=== PATIENT | female | born 1955 | race Caucasian/White ===

== ENCOUNTER 2018-06-07 12:37 | Outpatient (CLI) | payer OTHER ==
--- NOTE | 2018-06-07 14:14 | MMO ---
BILATERAL SCREENING MAMMOGRAM: Date: 06/07/18 HISTORY: Screening. COMPARISON: Mammograms from 2017, 2016, and 2015. TECHNIQUE: Bilateral screening CC and MLO, as well as implant displaced mammograms. This patient's mammogram was interpreted with the assistance of computer-aided detection. FINDINGS: There are scattered fibroglandular densities. There is increased focal asymmetry behind the left nipp le. There is also an asymmetry outer left breast seen on CC only, not well defined on the MLO mammogr am. Right breast is unremarkable. IMPRESSION: BIRADS 0: Incomplete: Need Additional Imaging Evaluation and/or Prior Mammograms for Comparison Increasing focal asymmetry retroareolar left breast behind the nipple requires further evaluation. Sp ot compression and ultrasound, if deemed necessary, is recommended. Asymmetry left breast outer one-half posterior depth seen only on the CC mammogram. Recommend spot co mpression and ultrasound, if deemed necessary. The facility will notify patient of need for additional imaging services. POS: AUDI
== END 2018-06-07 12:38 | disposition home or self-care (01) ==
LOC: SCSMAMMO 12:37
PROVIDERS: ATTEND Internal Medicine
DX: Z12.31 Encounter for screening mammogram for malignant neoplasm of breast (principal)
CPT/HCPCS: 77067

== ENCOUNTER 2018-06-15 12:58 | Outpatient (CLI) | payer OTHER | END 2018-06-15 12:59 | disposition home or self-care (01) | LOC: BICMAMMO 12:58 | PROVIDERS: ATTEND Internal Medicine | DX: R92.2 Inconclusive mammogram (principal) | CPT/HCPCS: G0279 ==

== ENCOUNTER 2019-06-13 10:22 | Outpatient (CLI) | payer OTHER ==
--- NOTE | 2019-06-13 11:48 | MMO ---
Bilateral MAMMO Bilat Screen [facility]. CLINICAL HISTORY: Patient is 64 years old and is seen for screening. The patient has no family history of breast cancer. The patient has no personal history of cancer. The patient has a history of Implants in 1989. VIEWS: The views performed were: bilateral craniocaudal with tomosynthesis; bilateral mediolateral oblique with tomosynthesis; and bilateral Implant displaced with tomosynthesis. FILMS COMPARED: The present examination has been compared to prior imaging studies performed at [facility] on 05/11/2017 and 06/07/2018, and at [facility] on 06/15/2018. MAMMOGRAM FINDINGS: There are scattered fibroglandular densities. There is a focal asymmetry seen in the inner region of the right breast. In the left breast, there are no suspicious masses, calcifications or areas of architectural distortion. IMPRESSION: FOCAL ASYMMETRY IN THE RIGHT BREAST REQUIRES ADDITIONAL EVALUATION. ADDITIONAL PROJECTIONS (RIGHT CRANIOCAUDAL MAGNIFICATION; RIGHT CRANIOCAUDAL SPOT COMPRESSION WITH TOMOSYNTHESIS; AND RIGHT MEDIOLATERAL OBLIQUE SPOT COMPRESSION WITH TOMOSYNTHESIS) ARE RECOMMENDED. THE RESULTS OF THIS EXAM WERE SENT TO THE PATIENT. ACR BI-RADS Category 0 - Incomplete: Need additional imaging evaluation. [facility] will notify the patient of the need for additional imaging services. MAMMOGRAPHY NOTE: 1. A negative mammogram report should not delay a biopsy if a dominant of clinically suspicious mass is present. 2. Approximately 10% to 15% of breast cancers are not detected by mammography. 3. Adenosis and dense breasts may obscure an underlying neoplasm. Reported by: GRETTA JOSEPH MD Electonically Signed: [id number]
== END 2019-06-13 10:23 | disposition home or self-care (01) ==
LOC: BICMAMMO 10:22
PROVIDERS: ATTEND Internal Medicine
DX: Z12.31 Encounter for screening mammogram for malignant neoplasm of breast (principal); Z98.82 Breast implant status; N64.89 Other specified disorders of breast
CPT/HCPCS: 77063; 77067

== ENCOUNTER 2019-06-20 09:53 | Outpatient (CLI) | payer OTHER ==
--- NOTE | 2019-06-20 10:46 | MMO ---
Right Breast MAMMO Unilat Diag DDI RT+DEANGELO. CLINICAL HISTORY: Patient is 64 years old and is seen for additional evaluation requested from prior study. The patient has no family history of breast cancer. The patient has no personal history of cancer. The patient has a history of Implants in 1989. VIEWS: The views performed were: right craniocaudal spot compression with tomosynthesis; right mediolateral oblique spot compression with tomosynthesis; right mediolateral; right mediolateral with tomosynthesis; and right Implant displaced with tomosynthesis. FILMS COMPARED: The present examination has been compared to prior imaging studies performed at [facility] on 06/07/2018, and at [facility] on 06/15/2018, 06/13/2019 and 06/20/2019. MAMMOGRAM FINDINGS: There are scattered fibroglandular densities. Additional evaluation was performed for the focal asymmetry in the right breast, inner region seen on 06/13/2019. On the present examination, there is an irregular mass measuring 4 millimeters in the right breast at 3 o'clock. IMPRESSION: MASS IN THE RIGHT BREAST IS SUSPICIOUS. AN ULTRASOUND-GUIDED BREAST BIOPSY IS RECOMMENDED. THE FINDINGS AND RECOMMENDATIONS WERE DISCUSSED WITH THE PATIENT PRIOR TO HER LEAVING THE CENTER. THE RESULTS OF THIS EXAM WERE SENT TO THE PATIENT. ACR BI-RADS Category 4 - Suspicious abnormality - biopsy should be considered MAMMOGRAPHY NOTE: 1. A negative mammogram report should not delay a biopsy if a dominant of clinically suspicious mass is present. 2. Approximately 10% to 15% of breast cancers are not detected by mammography. 3. Adenosis and dense breasts may obscure an underlying neoplasm. Reported by: EDGAR GUEVARA MD Electonically Signed: [id number]
--- NOTE | 2019-06-20 10:52 | ULT ---
RIGHT BREAST DIAGNOSTIC ULTRASOUND: Date: 06/20/19 INDICATION: Follow-up mass in the right breast seen on the diagnostic mammogram performed on 06/20/19. FINDINGS: Corresponding to the small irregular mass seen within the inner region of the right breast is a hypoe choic, irregular, partially shadowing mass within the right breast 2 o'clock position, 3.0 cm from th e nipple. The lesion measures approximately 3.0 x 2.0 x 3.0 mm in size. IMPRESSION: BIRADS Category 4 - Suspicious abnormality. Recommend ultrasound guided core biopsy of the suspicious mass in the right breast 2 o'clock position 3.0 cm from the nipple. The patient was counseled on the findings prior to leaving the breast center . POS: OFF
== END 2019-06-20 09:54 | disposition home or self-care (01) ==
LOC: BICMAMMO 09:53
PROVIDERS: ATTEND Internal Medicine
DX: R92.8 Other abnormal and inconclusive findings on diagnostic imaging of breast (principal); N63.10 Unspecified lump in the right breast, unspecified quadrant; Z98.82 Breast implant status
CPT/HCPCS: G0279

== ENCOUNTER → 2019-07-03 | Day surgery (SDC) | payer OTHER ==
--- NOTE | 2019-07-03 14:25 | ULT ---
ULTRASOUND GUIDED RIGHT BREAST MASS BIOPSY: INDICATIONS: Suspicious mass lesion within the right breast 2:00 o'clock position, 3 cm from the nipple. TECHNIQUE: Informed consent was obtained. Pre-procedure ultrasound identified the suspicious lesion in the righ t breast 2:00 o'clock position, 3 cm from the nipple, measuring 3.6 mm. The lesion is predominantly hypoechoic with irregular margins and posterior acoustic shadowing. The site overlying this region was prepped and draped in usual sterile fashion. Buffered 1% lidocain e was measured overlying the subcutaneous tissues. A small dermatotomy was made within the skin of the right breast. A 14 gauge core biopsy device was then guided down to the lesion. Three separate c ore samples were obtained of the lesion. Following the third sample, a biopsy clip was placed adjacent to the mass lesion. Pressure was held at the biopsy site until hemostasis was obtained. Th e patient did have a small amount of hemorrhage that developed in the biopsy tract and biopsy site during the sampling. The patient tolerated the biopsy without difficulty. The patient is to have a follow-up right breast mammogram to verify clip deployment. IMPRESSION: BIRADS Category 4-Suspicious abnormality. Status post ultrasound guided core biopsy of the right breast mass in the 2:00 o'clock position, 3 cm the nipple. Awaiting pathology results. Transcribed Date/Time: 07/03/2019 2:36 PM
--- NOTE | 2019-07-05 08:20 | MMO ---
Right Breast MAMMO Unilat Diag [facility]DI RT. CLINICAL HISTORY: Patient is 64 years old and is seen for diagnostic exam. The patient has no family history of breast cancer. The patient has no personal history of cancer. The patient has a history of Implants in 1989. VIEWS: The views performed were: right craniocaudal and right mediolateral oblique. FILMS COMPARED: The present examination has been compared to prior imaging studies performed at [facility] on 06/15/2018, 06/13/2019 and 06/20/2019. This study has been interpreted with the assistance of computer-aided detection. MAMMOGRAM FINDINGS: There are scattered fibroglandular densities. There is a new biopsy clip seen in the right breast at 3 o'clock. The biopsy clip is in the region of the suspcious mass seen in the right breast 2:00 position. Small hematoma is seen at the biopsy site. IMPRESSION: NEW BIOPSY CLIP IN THE RIGHT BREAST IS SUSPICIOUS. THE RESULTS OF THIS EXAM WERE SENT TO THE PATIENT. ACR BI-RADS Category 4 - Suspicious abnormality - biopsy should be considered MAMMOGRAPHY NOTE: 1. A negative mammogram report should not delay a biopsy if a dominant of clinically suspicious mass is present. 2. Approximately 10% to 15% of breast cancers are not detected by mammography. 3. Adenosis and dense breasts may obscure an underlying neoplasm. Reported by: EDGAR GUEVARA MD Electonically Signed: [id number]
== END ==
LOC: BICULT 12:56
PROVIDERS: ATTEND Internal Medicine
PROC: 0HBT3ZX Excision of Right Breast, Percutaneous Approach, Diagnostic (ICD-10-PCS; principal; 2019-07-03)
DX: C50.211 Malignant neoplasm of upper-inner quadrant of right female breast (principal)
CPT/HCPCS: 19083; 88305